=== PATIENT | male | born 1960 | race Caucasian/White ===

== ENCOUNTER → 2025-04-19 15:31 | Outpatient (BNVA) | payer OTHER, SELFPAY | PROVIDERS: Family Provider Family Medicine; Visit Provider Internal Medicine Cardiovascular Disease | DX: R07.9 Chest pain, unspecified (principal) | CPT/HCPCS: 93005 ==

== ENCOUNTER 2025-05-05 09:52 | Outpatient (CLI) | payer OTHER, SELFPAY ==
--- NOTE | 2025-05-05 10:00 | USCV_ITS ---
Cedric Cleaning Age: 64 Gender: M : 1960 Exam Date: 05/05/2025 10:23 Ordering Phys: Mariah Roman MD ([email or web address]) Technologist: VALENTINE Exam Location: [facility] – [place] Indication: CP, Fatigue BP: 164 / 100 HR: 74 Rhythm: Sinus Technical Quality: Adequate MEASUREMENTS (Male / Female) Normal Values 2D ECHO LV Diastolic Diameter PLAX 5.4 cm 4.2 - 5.9 / 3.9 - 5.3 cm IVS Diastolic Thickness 1.1 cm 0.6 - 1.0 / 0.6 - 0.9 cm IVS Systolic Thickness 1.7 cm LVPW Diastolic Thickness 1.1 cm 0.6 - 1.0 / 0.6 - 0.9 cm LVPW Systolic Thickness 1.3 cm LVOT Diameter 2.1 cm LV Ejection Fraction 2D Teich 52.8 % LV Ejection Fraction MOD 4C 52.8 % LV Ejection Fraction MOD 2C 61.0 % LV Ejection Fraction 2C AL 63.5 % LA Diameter 3.9 cm RA Systolic Volume 4C AL 37.5 ml RA Systolic Volume 4C MOD 35.7 ml LA Sys Volume AL 38.7 cm cubed LA Sys Volume Index AL 17.4 cm cubed/m squared Aorta at Sinotubular Diameter 3.4 cm IVC Diameter 2.5 cm M-MODE LA Ao Ratio MM 1.1 AV Cusp Separation MM 1.5 cm DOPPLER AV Peak Velocity 91.0 cm/s LVOT Peak Velocity 79.0 cm/s AV Area Cont Eq vti 3.9 cm squared AV Area Cont Eq pk 3.0 cm squared MV Peak Velocity 103.0 cm/s MV Area PHT 5.4 cm squared Mitral E to A Ratio 0.7 TR Peak Velocity 69.0 cm/s TR Peak Gradient 1.9 mmHg TV Peak E Velocity 66.0 cm/s FINDINGS Left Ventricle Normal left ventricular size, systolic function and wall thickness, with no regional wall motion abnormalities. Left ventricular ejection fraction is estimated at 60 %. Grade I/IV diastolic dysfunction (abnormal relaxation filling pattern), normal to mildly elevated filling pressures. Right Ventricle The right ventricle is normal in size and function. Right Atrium The right atrium is normal in size. Left Atrium The left atrium is normal in size. Mitral Valve Structurally normal mitral valve without significant stenosis or prolapse. There is no mitral regurgitation. Aortic Valve Structurally normal aortic valve without significant sclerosis or stenosis. There is no aortic regurgitation. Tricuspid Valve Structurally normal tricuspid valve without significant stenosis or regurgitation. Pulmonary artery systolic pressure is normal. Pulmonic Valve Structurally normal pulmonic valve without significant stenosis. There is no pulmonic regurgitation. Pericardium Normal pericardium without effusion. Aorta Normal ascending aorta dimension. IVC The inferior vena cava appears normal. CONCLUSIONS Normal left ventricular size, systolic function and wall thickness, with no regional wall motion abnormalities. Left ventricular ejection fraction is estimated at 60 %. Grade I/IV diastolic dysfunction (abnormal relaxation filling pattern), normal to mildly elevated filling pressures. There is no pericardial effusion. No significant valve abnormalities. Right atrial pressure is around 5 mm of mercury. Amalia Nguyen MD (Electronically Signed) Final Date: 09 May 2025 21:28 S
== END 2025-05-05 09:53 | disposition home or self-care (01) ==
PROVIDERS: Family Provider Family Medicine; PCP Nurse Practitioner Family; Visit Provider Internal Medicine Cardiovascular Disease
DX: R06.09 Other forms of dyspnea (principal); R93.1 Abnormal findings on diagnostic imaging of heart and coronary circulation
CPT/HCPCS: 93306

== ENCOUNTER 2025-05-23 09:41 | Outpatient (CLI) | payer OTHER, SELFPAY ==
--- NOTE | 2025-05-23 10:04 | ECG_ITS ---
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 Interpretive Statements EXERCISE MIBI EXERCISE DATA: The patient was exercised by Mac protocol. Baseline heart rate was 76 beats per minute. Baseline blood pressure was 153/107 millimeters of mercury. Maximal predicted heart rate was 157 beats per minute. Maximum heart rate achieved was 149, which was 94% of the maximum predicted heart rate. Maximum blood pressure was 207/89 millimeters of mercury. Total exercise time was 3 minutes 19 seconds. Maximum METs achieved was 7.0. The reason for ending the test was completion of protocol. The patient complained of [] during the stress test, which then resolved at the end of the test. ELECTROCARDIOGRAM: BASELINE: Showed sinus rhythm, normal axis, no significant ST-T changes at the baseline noted. [] EXERCISE: At the peak exercise level, [] No significant ST-T changes suggestive of ischemia noted. [] RECOVERY: During the recovery period, heart rate dropped appropriately. No significant ST-T changes in the recovery suggestive of ischemia noted. [] CONCLUSION: 1. Exercise capacity is fair 2. Heart rate response was appropriate 3. Blood pressure response was hypertensive 4. Symptoms not suggestive of ischemia. 5. Electrocardiogram portion of the stress test was not suggestive of ischemia. 6. Nuclear scan will be documented separately. Electronically Signed On 06-11-2025 13:48:08 CDT by Jovani Renteria M.D. [email or web address]
--- NOTE | 2025-05-23 10:04 | NMCV_ITS ---
NM francheska perf SPECT r/s* [id number] Cedric Cleaning Age: 64 Gender: M : 1960 Exam Date: 05/23/2025 10:44 Ordering Phys: Mariah Roman MD ([email or web address]) Technologist: GERALD Ahuja Exam Location: [facility] Indications: CP STRESS TEST Please see separate stress test report in [facility] for full findings IMAGE PROTOCOL Rest/Stress 1 Exercise Day Radiopharmaceutical Dose (mCi) Administration Site Administered by Rest: Tc-99m 10.6 IV GERALD Ahuja Sestamibi Stress:Tc-99m 32.6 IV GERALD Delgadillo Sestamibi Rest: 23-May-2025 60 Discovery 630 Stress: 23-May-2025 15 Discovery 630 Radiopharmaceutical was injected at 85 % maximum heart rate. Images obtained in supine and prone position. SPECT RESULTS Technical Quality: Good Raw Data Analysis: Normal Image Corrections: No attenuation or motion correction applied Summed Stress Score: 0 Summed Rest Score: 2 Summed Difference Score: 0 PERFUSION FINDINGS SPECT images demonstrate homogeneous tracer distribution throughout the myocardium. FUNCTIONAL RESULTS (calculated via Gated SPECT) Stress Image LV EF (%): 78 Stress EDV (mL):90 TID: 0.87 Stress ESV (mL):20 FUNCTIONAL FINDINGS: There is normal left ventricular systolic function. IMPRESSIONS 1. Normal myocardial perfusion imaging with no evidence of ischemia. 2. LV systolic function is normal Jovani Renteria MD (Electronically Signed) Final Date: 28 May 2025 11:16 S
[2025-05-23 10:05] VITALS: BMI 34.7
[2025-05-23 11:34] VITALS: BP 170/86; PULSE 98
== END 2025-05-23 09:42 | disposition home or self-care (01) ==
LOC: CDL 09:43
PROVIDERS: PCP Nurse Practitioner Family; Visit Provider Internal Medicine Cardiovascular Disease
DX: I10 Essential (primary) hypertension (principal); R93.1 Abnormal findings on diagnostic imaging of heart and coronary circulation
CPT/HCPCS: 36415; 78452; 93017; 96374; A9500